=== PATIENT | male | born 1960 | race Caucasian/White ===

== ENCOUNTER 2016-06-20 09:42 | Emergency (ER) | payer BC ==
[2016-06-20] MEDS ORDERED: Aspirin Low Dose CHEW TAB* 81 MG PO ONE (10:50)
[2016-06-20 11:05] LABS: Hematocrit 42 % (42-52); Mean Corpuscular HGB Conc 33 g/dl (31-36); Mean Corpuscular Hemoglobin 31 pg (27-31); Mean Corpuscular Volume 93 fL (80-94); Mean Platelet Volume 9 um3 (7.4-10.4); Red Blood Count 4.52 10^6/ul (4.0-5.4); Red Cell Distribution Width 13 % (10.5-15); White Blood Count 6.5 10^3/ul (3.5-10.8)
[2016-06-20 11:20] LABS: Calcium 9.1 mg/dL (8.6-10.3); EGFR African American 114.8 (>60); EGFR Non-African American 89.3 (>60); Globulin 2.5 g/dL (2-4); Potassium 3.9 mmol/L (3.5-5.0); Total Bilirubin 0.4 mg/dL (0.2-1.0); Total Protein 6.5 g/dL (6.4-8.9)
[2016-06-20 11:21] LABS: Troponin I 0.01 ng/mL (<0.04)
--- NOTE | 2016-06-20 11:50 | RAD ---
INDICATION: Chest pain. COMPARISON: Comparison is made with a prior study from May 06, 2003. TECHNIQUE: A portable view of the chest was obtained. FINDINGS: Cardiac and mediastinal contours appear to be within normal limits. The lungs are clear. No pleural effusion is seen. IMPRESSION: NO EVIDENCE FOR ACUTE DISEASE.
[2016-06-20 13:35] LABS: Urine Bilirubin Negative (Negative); Urine Glucose Negative (Negative); Urine Nitrite Negative (Negative)
--- NOTE | 2016-06-20 13:54 | ED ---
HPI Chest Pain - HPI Summary HPI Summary: Patient presents with two episodes of a dull ache in his right arm, bilateral pectoralis and left upper arm that last 30 seconds. These occurred yesterday and two days ago. The pain is not worse with exertion and it resolves spontaneously. He did feel sweaty yesterday when the pain occurred, but not two days ago. He denies lightheadedness, nausea or back pain. He has a history of "sternal cartilage pain" and over the last two weeks he has increased playing his electric burnett guitar for up to 5 hours a day. His brother does have arrhythmias, but no other family heart history. He does not smoke and exercises daily without pain. He denies sensation of palpations. - History of Current Complaint Chief Complaint: EDChestPainROMI Time Seen by Provider: 06/20/16 10:51 Hx Obtained From: Patient Onset/Duration: Started Days Ago - 2, Atraumatic, Resolved Timing: Intermittent - 30 seconds Initial Severity: Mild Current Severity: Mild Pain Intensity: 1 Chest Pain Location: Left Lateral, Right Lateral - with bilateral upper arms Chest Pain Radiates: No Character: Dull/Aching Aggravating Factor(s): Nothing Alleviating Factor(s): Nothing, Spontaneous Resolution Associated Signs and Symptoms: Positive: Diaphoresis - Allergy/Home Medications Allergies/Adverse Reactions: Allergies Allergy/AdvReac Type Severity Reaction Status Date / Time No Known Allergies Allergy Verified 06/20/16 09:47 PMH/Surg Hx/FS Hx/Imm Hx GI History: Reports: Hx Ulcer - gerd Infectious Disease History: No Infectious Disease History: Reports: Hx Shingles Denies: History Other Infectious Disease, Traveled Outside the in Last 30 Days - Family History Known Family History: Positive: None - Social History Occupation: Employed Full-time Lives: Alone Alcohol Use: Occasionally Substance Use Type: Reports: None Smoking Status (MU): Never Smoked Tobacco Review of Systems Negative: Fever Positive: Chest Pain. Negative: Palpitations Negative: Shortness Of Breath, Cough Negative: Abdominal Pain Negative: Myalgia Negative: Headache, Weakness, Paresthesia, Numbness All Other Systems Reviewed And Are Negative: Yes Physical Exam Triage Information Reviewed: Yes Vital Signs On Initial Exam: Initial Vitals Temp Pulse Resp BP Pulse Ox 97.0 F 56 15 154/86 98 06/20/16 09:47 06/20/16 09:47 06/20/16 09:47 06/20/16 09:47 06/20/16 09:47 Vital Signs Reviewed: Yes Appearance: Positive: Well-Appearing, No Pain Distress, Well-Nourished Skin: Positive: Warm, Skin Color Reflects Adequate Perfusion, Dry, Soft Head/Face: Positive: Normal Head/Face Inspection Eyes: Positive: EOMI, ISAMAR, Conjunctiva Clear ENT: Positive: Hearing grossly normal Neck: Positive: Supple, Nontender, No Lymphadenopathy Respiratory/Lung Sounds: Positive: Clear to Auscultation, Breath Sounds Present Cardiovascular: Positive: Bradycardia Abdomen Description: Positive: Nontender, Soft. Negative: CVA Tenderness (R), CVA Tenderness (L), Distended, Guarding, Pulsatile Mass Bowel Sounds: Positive: Present Musculoskeletal: Positive: Strength/ROM Intact, Pain @ - TTP with palpation of bilateral pectoralis, shoulders and lateral ribs.. Negative: Edema Left, Edema Right Neurological: Positive: Sensory/Motor Intact, Alert, Oriented to Person Place, Time, NV Bundle Intact Distally, Normal Gait Psychiatric: Positive: Affect/Mood Appropriate AVPU Assessment: Alert Diagnostics - Vital Signs Vital Signs Temp Pulse Resp BP Pulse Ox 06/20/16 11:00 51 19 152/90 96 06/20/16 10:30 50 14 142/80 96 06/20/16 10:09 52 97 06/20/16 10:08 141/82 06/20/16 09:47 97.0 F 56 15 154/86 98 - Laboratory Lab Results: Lab Results 06/20/16 06/20/16 06/20/16 Range/Units 11:00 11:00 11:00 WBC 6.5 (3.5-10.8) 10^3/ul RBC 4.52 (4.0-5.4) 10^6/ul Hgb 14.0 (14.0-18.0) g/dl Hct 42 (42-52) % MCV 93 (80-94) fL MCH 31 (27-31) pg MCHC 33 (31-36) g/dl RDW 13 (10.5-15) % Plt Count 191 (150-450) 10^3/ul MPV 9 (7.4-10.4) um3 Neut % (Auto) 61.4 (38-83) % Lymph % (Auto) 29.8 (25-47) % Redwood % (Auto) 6.8 (1-9) % Eos % (Auto) 1.3 (0-6) % Baso % (Auto) 0.7 (0-2) % Absolute Neuts (auto) 4.0 (1.5-7.7) 10^3/ul Absolute Lymphs (auto) 1.9 (1.0-4.8) 10^3/ul Absolute Monos (auto) 0.4 (0-0.8) 10^3/ul Absolute Eos (auto) 0.1 (0-0.6) 10^3/ul Absolute Basos (auto) 0 (0-0.2) 10^3/ul Absolute Nucleated RBC 0 10^3/ul Nucleated RBC % 0.1 Sodium 139 (133-145) mmol/L Potassium 3.9 (3.5-5.0) mmol/L Chloride 106 (101-111) mmol/L Carbon Dioxide 28 (22-32) mmol/L Anion Gap 5 (2-11) mmol/L BUN 15 (6-24) mg/dL Creatinine 0.88 (0.67-1.17) mg/dL Est GFR ( Amer) 114.8 (>60) Est GFR (Non-Af Amer) 89.3 (>60) BUN/Creatinine Ratio 17.0 (8-20) Glucose 96 (70-100) mg/dL Lactic Acid 0.8 (0.5-2.0) mmol/L Calcium 9.1 (8.6-10.3) mg/dL Total Bilirubin 0.40 (0.2-1.0) mg/dL AST 17 (13-39) U/L ALT 17 (7-52) U/L Alkaline Phosphatase 67 (34-104) U/L Troponin I 0.01 (<0.04) ng/mL Total Protein 6.5 (6.4-8.9) g/dL Albumin 4.0 (3.2-5.2) g/dL Globulin 2.5 (2-4) g/dL Albumin/Globulin Ratio 1.6 (1-3) Urine Color Urine Appearance Urine pH (5-9) Ur Specific Midway (1.010-1.030) Urine Protein (Negative) Urine Ketones (Negative) Urine Blood (Negative) Urine Nitrate (Negative) Urine Bilirubin (Negative) Urine Urobilinogen (Negative) Ur Leukocyte Esterase (Negative) Urine Glucose (Negative) 06/20/16 Range/Units 11:55 WBC (3.5-10.8) 10^3/ul RBC (4.0-5.4) 10^6/ul Hgb (14.0-18.0) g/dl Hct (42-52) % MCV (80-94) fL MCH (27-31) pg MCHC (31-36) g/dl RDW (10.5-15) % Plt Count (150-450) 10^3/ul MPV (7.4-10.4) um3 Neut % (Auto) (38-83) % Lymph % (Auto) (25-47) % Redwood % (Auto) (1-9) % Eos % (Auto) (0-6) % Baso % (Auto) (0-2) % Absolute Neuts (auto) (1.5-7.7) 10^3/ul Absolute Lymphs (auto) (1.0-4.8) 10^3/ul Absolute Monos (auto) (0-0.8) 10^3/ul Absolute Eos (auto) (0-0.6) 10^3/ul Absolute Basos (auto) (0-0.2) 10^3/ul Absolute Nucleated RBC 10^3/ul Nucleated RBC % Sodium (133-145) mmol/L Potassium (3.5-5.0) mmol/L Chloride (101-111) mmol/L Carbon Dioxide (22-32) mmol/L Anion Gap (2-11) mmol/L BUN (6-24) mg/dL Creatinine (0.67-1.17) mg/dL Est GFR ( Amer) (>60) Est GFR (Non-Af Amer) (>60) BUN/Creatinine Ratio (8-20) Glucose (70-100) mg/dL Lactic Acid (0.5-2.0) mmol/L Calcium (8.6-10.3) mg/dL Total Bilirubin (0.2-1.0) mg/dL AST (13-39) U/L ALT (7-52) U/L Alkaline Phosphatase (34-104) U/L Troponin I (<0.04) ng/mL Total Protein (6.4-8.9) g/dL Albumin (3.2-5.2) g/dL Globulin (2-4) g/dL Albumin/Globulin Ratio (1-3) Urine Color Yellow Urine Appearance Clear Urine pH 7.0 (5-9) Ur Specific Midway 1.008 L (1.010-1.030) Urine Protein Negative (Negative) Urine Ketones Negative (Negative) Urine Blood Negative (Negative) Urine Nitrate Negative (Negative) Urine Bilirubin Negative (Negative) Urine Urobilinogen Negative (Negative) Ur Leukocyte Esterase Negative (Negative) Urine Glucose Negative (Negative) Troponin at 11:00 - 0.01 Troponin at 12:48 - 0.00 Result Diagrams: 06/20/16 11:00 06/20/16 11:00 Lab Statement: Any lab studies that have been ordered have been reviewed, and results considered in the medical decision making process. - EKG No standard instances Cardiac Rate: Bradycardia EKG Rhythm: Sinus Rhythm ST Segment: Normal Ectopy: None Chest Pain Course/Dx - Chest Pain Differential Diagnosis/HQI/PQRI: Acute PA, ACS, Angina, Aortic Aneurysm, Chest Wall, Lower Respiratory Infection, Pulmonary Edema - Diagnoses Provider Diagnoses: Chest wall pain Discharge - Discharge Plan Condition: Stable Disposition: HOME Patient Education Materials: Chest Wall Pain (ED) Referrals: Etienne Trevizo MD [Primary Care Provider] - Additional Instructions: Please follow-up with your PCP within 48 hours for evaluation and treatment options. Return to the emergency department if your symptoms worsen.
[2016-06-20 14:18] VITALS: BP 150/77
== END 2016-06-20 14:30 | disposition home or self-care (01) ==
LOC: ED 09:42
DX: R07.89 Other chest pain (principal)
CPT/HCPCS: 36415; 71010; 80053; 81003; 83605; 84484; 85025; 93005; 99283

== ENCOUNTER 2016-10-17 11:44 | Day surgery (SDC) | payer BC ==
[~2016-10-17 11:44] MED LIST: Buffered Lidocaine 1% SYR 3ML* 3 ML/SYR SYRINGE INTRADERM ONE; Famotidine IV* 10 MG/ML 2 ML (20 mg) IV ONE; Levalbuterol 0.63MG/3ML NEB INH ONE; Metoclopramide TAB* 10 MG PO ONE
[2016-10-17] MEDS ORDERED: Metoclopramide TAB* 10 MG ONE (12:01)
[2016-10-17] MEDS ORDERED: Famotidine IV* 10 MG/ML 2 ML (20 mg) ONE (12:01)
[2016-10-17] MEDS ORDERED: Levalbuterol 1.25MG/0.5ML NEB ONE (12:01)
[2016-10-17] MEDS ORDERED: Dexamethasone IV* 4 MG/ML 1 ML (4 MG) ONE (12:37)
[2016-10-17] MEDS ORDERED: Ondansetron INJ* 2 MG/ML VIAL ONE (12:37)
[2016-10-17] MEDS ORDERED: Cisatracurium* 2 MG/ML MDV 5 ML ONE (12:37)
[2016-10-17] MEDS ORDERED: Propofol* 10 MG/ML 20 ML BTL IV PUSH ONE (12:37)
[2016-10-17] MEDS ORDERED: Lidocaine 2% PF * 5 ML VIAL ONE (12:37)
[2016-10-17] MEDS ORDERED: fentaNYL* 50 MCG/ML 2 ML VIAL (100 MCG VIAL) ONE (12:37)
[2016-10-17] MEDS ORDERED: Midazolam* 1 MG/ML 5 ML VIAL (5 MG) ONE (12:38)
[2016-10-17] MEDS ORDERED: EPHEDrine (Pressors)* 50 MG/ML VIAL ONE (13:22)
[2016-10-17] MEDS ORDERED: fentaNYL* 50 MCG/ML 2 ML VIAL (100 MCG VIAL) IV PRN (15:02)
[2016-10-17] MEDS ORDERED: Levalbuterol 0.63MG/3ML NEB INH PRN (15:02)
[2016-10-17] MEDS ORDERED: Ondansetron INJ* 2 MG/ML VIAL IV PRN (15:02)
--- NOTE | 2016-10-17 15:40 | RAD ---
Indication: Assess for pneumothorax post RIGHT transbronchial biopsy. Comparison: October 05, 2016 CT. October 04, 2016 chest radiograph. Technique: Upright AP 1500 hours Report: Negative for RIGHT pneumothorax. Grossly clear pleural spaces. Consolidation in the RIGHT mid to lower lung zone is more confluent than on the October 04, 2016 exam. This may represent worsening of alveolar consolidation due to primary inflammatory process or potentially alveolar hemorrhage. Top normal heart size accounting for AP portable technique. Unremarkable central pulmonary vasculature. IMPRESSION: No evidence for RIGHT pneumothorax post transbronchial biopsy.
[2016-10-17 17:00] VITALS: BP 128/75
--- NOTE | 2016-10-18 02:21 | PRO ---
BRONCHOSCOPY REPORT: DATE OF PROCEDURE: 10/17/16 - [facility] SURGEON: Alexia Santiago MD ANESTHESIA: General anesthesia. ANESTHESIOLOGIST: Dr. Vera.Refer to anesthesiologist's note for further details. PREPROCEDURAL DIAGNOSIS: Multiple pulmonary nodules, mediastinal and hilar adenopathy, air bronchograms in right middle lobe, left lower lobe and right upper lobe; evaluation of sarcoidosis, rule out malignancy. PROCEDURE PERFORMED: Bronchoscopy with endobronchial ultrasound-guided fine needle aspiration from R4, L4, station 7, R10 nodes, transbronchial biopsies from right middle lobe, bronchial alveolar lavage from right middle lobe and right lower lobe and endobronchial brushings from right middle lobe. DESCRIPTION OF PROCEDURE: Informed consent was obtained from the patient prior to the procedure after all the risks and benefits were thoroughly explained. The patient recently was treated for pneumonia with progression in lung infiltrates on followup CT scan. The patient was scheduled for bronchoscopy for evaluation of CT chest abnormality. The patient was placed supine on the operating room table. Appropriate time-out was agreed on by attending staff. A flexible Olympus bronchoscope was utilized for airway inspection. No endobronchial lesions were noted. All airways appeared to be patent. Right upper lobe bronchus had 4 sub- segments. No thick secretions were noted. EBUS bronchoscope was then withdrawn and Olympus EBUS bronchoscope was inserted through ET tube. R4 lymph nodes was accessed with 3 passes. Rapid on-site evaluation revealed lymphatic tissue, no malignant cells. Bronchoscope was then advanced into left bronchus and station L4 was accessed with 3 passes. Lymphatic tissue was seen, no endobronchial lesions were noted. Bronchoscope was then advanced and station 7 lymph nodes was accessed with 2 passes. Lymphatic tissue was noted, no inflammation or malignant cells were noted. Station R10 was sampled with 2 passes. Rapid on-site evaluation revealed lymphatic tissue, no malignant cells were noted. Olympus EBUS bronchoscope was then withdrawn and Olympus flexible bronchoscope was reinserted and transbronchial biopsies were obtained from right middle lobe with 5 passes under fluoro guidance. Specimen was placed in formalin, bronchial brushings were also obtained from right middle lobe and 4 slides were smeared. Bronchoalveolar lavage was also obtained from right middle lobe and right lower lobe and was sent for exam. The patient tolerated the procedure well. The patient was extubated and seen in Recovery in optimal condition. A postprocedure chest x-ray was ordered and is pending at this time. [id number]/[facility] #: [id number] LAURA
--- NOTE | 2016-10-18 10:27 | RAD ---
CPT II Codes: 6045F INDICATION: Right middle lobe bronchoscopy Fluoroscopic services provided for referring physician. 75.4 seconds of fluoroscopy time was used. A bronchoscopy is noted in the right middle lobe. IMPRESSION: Fluoroscopic services provided for referring physician for bronchoscopy of the right middle lobe.
== END 2016-10-17 16:15 | disposition home or self-care (01) ==
LOC: OR 11:44
PROVIDERS: ATTEND Internal Medicine
DX: R59.0 Localized enlarged lymph nodes (principal); R91.8 Other nonspecific abnormal finding of lung field; R06.02 Shortness of breath; J45.909 Unspecified asthma, uncomplicated; I10 Essential (primary) hypertension; I65.02 Occlusion and stenosis of left vertebral artery
CPT/HCPCS: 71010; 76000; 87070; 87102; 87116; 87205; 87206; 88108; 88112; 88172; 88173; 88305; A9270-GY; J1100; J2250; J2405; J2704; J3010

== ENCOUNTER 2016-10-20 04:22 | Emergency (ER) | payer BC ==
[2016-10-20] MEDS ORDERED: Aspirin Low Dose CHEW TAB* 81 MG PO ONE (05:29)
[2016-10-20] MEDS ORDERED: NS 0.9% 1000 ML* 1,000 ML IV ONE (05:30)
[2016-10-20 06:34] VITALS: BP 153/89
--- NOTE | 2016-10-20 20:36 | ED ---
Rafita Coulter Alok, scribed for Christiano Peter MD on 10/20/16 at 0615 . Dizziness - HPI Summary HPI Summary: 56M presents to the ED for lightheadedness, ear ache, and indigestion. Pt states he took 6 teaspoons of baking soda at 0300 for his GERD and is worried he took too much. Pt states he has been taking baking soda for his GERD for years and it usually helps, though not in such high quantity and his GERD was not relieved this evening. Pt also notes esophageal burning from GERD for the past week. Pt denies CP or tightness/pressure. Pt denies sour taste in his mouth. Pt states that he has not had GERD for the past 4 or 5 years since he stopped drinking beer, though since recently eating a poor diet his GERD has returned. Pt medications include doxycycline and aspirin. Pt was dx with PNA 2.5 month ago. Pt additionally had a lung biopsy 3 days ago. - History Of Current Complaint Chief Complaint: EDGeneral Stated Complaint: OVERDOSE ON BAKING SODA Time Seen by Provider: 10/20/16 05:08 Hx Obtained From: Patient Timing: Constant Severity Initially: Moderate Severity Currently: Moderate Character: Lightheaded Aggravating Factor(s): Other - possible reaction to baking soda - Allergies/Home Medications Allergies/Adverse Reactions: Allergies Allergy/AdvReac Type Severity Reaction Status Date / Time Gadoteridol [From ProHance] Allergy See Comment Verified 10/20/16 04:36 PMH/Surg Hx/FS Hx/Imm Hx Endocrine/Hematology History: Denies: Hx Diabetes Cardiovascular History: Reports: Hx Hypertension - NO MEDICATION FOR AT THIS TIME PER PATIENT, Hx Peripheral Vascular Disease - OCCULSION IN THE LEFT VERTEBRAL ARTERY Denies: Hx Pacemaker/ICD Respiratory History: Reports: Hx Asthma - ?-PRN INHALER, Other Respiratory Problems/Disorders - FLUID IN LUNG Denies: Hx Pulmonary Embolism GI History: Reports: Hx Gastroesophageal Reflux Disease - NO MEDICATION FOR AT THIS TIME, Hx Hiatal Hernia, Hx Ulcer - gerd History: Denies: Hx Dialysis, Hx Renal Disease Musculoskeletal History: Reports: Hx Arthritis - FINGER, BILATERAL GREAT TOE, Hx Bursitis - HX OF IN SHOULDER-15 YEARS AGO, Hx Tendonitis - HX OF TENNIS ELBOW , LEFT HAND TRIGGER FINGERS, RIGHT HAND MIDDLE FINGER, Other Musculoskeletal History - CERVICAL SPONDYLOSIS Sensory History: Reports: Hx Contacts or Glasses - READING Denies: Hx Hearing Aid Opthamlomology History: Reports: Hx Contacts or Glasses - READING Neurological History: Reports: Hx Migraine - LAST ABOUT 6 MONTHS AGO, Other Neuro Impairments/Disorders - EXTREME VERTIGO-06/2016-08/2016-NONE SINCE Psychiatric History: Reports: Hx Depression - ON MEDICATION FOR Denies: Hx Panic Disorder - Surgical History Surgery Procedure, Year, and Place: Rt WRIST - GANGLION CYST Hx Anesthesia Reactions: No Infectious Disease History: Reports: Hx Shingles Denies: History Other Infectious Disease, Traveled Outside the [place] in Last 30 Days - Family History Known Family History: Negative: Cardiac Disease, Hypertension, Diabetes - Social History Lives: With Family Alcohol Use: Weekly Alcohol Amount: 1 PER WEEK Substance Use Type: Reports: None Smoking Status (MU): Former Smoker Amount Used/How Often: 1 PPD X 13 YRS Have You Smoked in the Last Year: No Review of Systems Negative: Fever, Chills Negative: Erythema Positive: Ear Ache, Other - esophageal burning . Negative: Sore Throat Negative: Chest Pain Negative: Shortness Of Breath, Cough Positive: Other - indigestion. Negative: Abdominal Pain, Vomiting, Nausea Negative: dysuria, hematuria Negative: Myalgia, Edema Negative: Rash Neurological: Other - lightheadedness All Other Systems Reviewed And Are Negative: Yes Physical Exam - Summary Physical Exam Summary: Constitutional: Well-developed, Well-nourished, Alert. (-) Distressed Skin: Warm, Dry HENT: Normocephalic; Atraumatic Eyes: Conjunctiva normal Neck: Musculoskeletal ROM normal neck. (-) JVD, (-) Stridor, (-) Tracheal deviation Cardio: Rhythm regular, rate normal, Heart sounds normal; Intact distal pulses; The pedal pulses are 2+ and symmetric. Radial pulses are 2+ and symmetric. (-) Murmur Pulmonary/Chest wall: Effort normal. (-) Respiratory distress, (-) Wheezes, (-) Rales Abd: Soft, (-) Tenderness, (-) Distension, (-) Guarding, (-) Rebound Musculoskeletal: (-) Edema Lymph: (-) Cervical adenopathy Neuro: Alert, Oriented x3 Psych: Mood and affect Normal Triage Information Reviewed: Yes Vital Signs On Initial Exam: Initial Vitals Temp Pulse Resp BP Pulse Ox 97.5 F 67 16 163/93 98 10/20/16 04:25 10/20/16 04:25 10/20/16 04:25 10/20/16 04:25 10/20/16 04:25 Vital Signs Reviewed: Yes Diagnostics - Vital Signs Vital Signs Temp Pulse Resp BP Pulse Ox 10/20/16 04:25 97.5 F 67 16 163/93 98 - Laboratory Lab Statement: Any lab studies that have been ordered have been reviewed, and results considered in the medical decision making process. Re-Evaluation - Re-Evaluation First Eval Re-Evaluation Time: 06:17 Comment: Pt understands that I wish to do a cardiac work-up on him but does not wish to do it and will leave AMA Dizzy Course/Dx - Course Course Of Treatment: Pt understands that I wish to do a cardiac work-up on him but does not wish to do it and will leave AMA - Diagnoses Provider Diagnoses: Chest pain, unspecified Discharge - Discharge Plan Condition: Stable Disposition: AGAINST MEDICAL ADVICE Referrals: Naomi Parks MD [Primary Care Provider] - The documentation as recorded by the Rafita golden Alok accurately reflects the service I personally performed and the decisions made by me, Christiano Peter MD.
== END 2016-10-20 06:44 | disposition left against medical advice (07) ==
LOC: ED 04:22
DX: H92.09 Otalgia, unspecified ear (principal); R42 Dizziness and giddiness; Z53.21 Procedure and treatment not carried out due to patient leaving prior to being seen by health care provider; R07.9 Chest pain, unspecified
CPT/HCPCS: 99282

== ENCOUNTER 2016-10-21 00:32 | Emergency (ER) | payer BC ==
[2016-10-21] MEDS ORDERED: diPHENhydraMINE IV* 50 MG/ML 1 ml VIAL (BENADRYL) IV ONE (01:11)
--- NOTE | 2016-10-21 01:52 | ED ---
Allergic Reaction/Systemic - HPI Summary HPI Summary: Patient developed hives and itching on his bilateral forearms and hands approximately an hour ago while asleep. His throat "feels a little scratchy" but he denies difficulty breathing, SOB, nausea, orlightheadedness. He was asleep with an acrylic blanket, which he thinks could have caused the reaction. Otherwise he did eat beef at a new [employer] restaurant tonight 6 hours ago and he took omeprazole this morning for the first time in 3 years tonight for GERD. He denies new soaps, clothes, lotions, detergents or substances. He is currently on doxycycline for URI. He feels that his symptoms have already begun to improve. - History of Current Complaint Chief Complaint: EDAllergicReaction Time Seen by Provider: 10/21/16 00:44 Hx Obtained From: Patient, Family/Resolute Professional Onset/Duration: Sudden Onset Timing: Constant Severity Initially: Moderate Severity Currently: Mild Pain Intensity: 0 Character: Pruritus, Hives Aggravating Factor(s): Nothing Alleviating Factor(s): Nothing Associated Signs And Symptoms: Positive: Negative - Related Hx Possible Reaction To: Unknown - Allergies/Home Medications Allergies/Adverse Reactions: Allergies Allergy/AdvReac Type Severity Reaction Status Date / Time Gadoteridol [From Wishdates] Allergy See Comment Verified 10/20/16 04:36 PMH/Surg Hx/FS Hx/Imm Hx Endocrine/Hematology History: Denies: Hx Diabetes Cardiovascular History: Reports: Hx Hypertension - NO MEDICATION FOR AT THIS TIME PER PATIENT, Hx Peripheral Vascular Disease - OCCULSION IN THE LEFT VERTEBRAL ARTERY Denies: Hx Pacemaker/ICD Respiratory History: Reports: Hx Asthma - ?-PRN INHALER, Other Respiratory Problems/Disorders - FLUID IN LUNG Denies: Hx Pulmonary Embolism GI History: Reports: Hx Gastroesophageal Reflux Disease - NO MEDICATION FOR AT THIS TIME, Hx Hiatal Hernia, Hx Ulcer - gerd History: Denies: Hx Dialysis, Hx Renal Disease Musculoskeletal History: Reports: Hx Arthritis - FINGER, BILATERAL GREAT TOE, Hx Bursitis - HX OF IN SHOULDER-15 YEARS AGO, Hx Tendonitis - HX OF TENNIS ELBOW , LEFT HAND TRIGGER FINGERS, RIGHT HAND MIDDLE FINGER, Other Musculoskeletal History - CERVICAL SPONDYLOSIS Sensory History: Reports: Hx Contacts or Glasses - READING Denies: Hx Hearing Aid Opthamlomology History: Reports: Hx Contacts or Glasses - READING Neurological History: Reports: Hx Migraine - LAST ABOUT 6 MONTHS AGO, Other Neuro Impairments/Disorders - EXTREME VERTIGO-06/2016-08/2016-NONE SINCE Psychiatric History: Reports: Hx Depression - ON MEDICATION FOR Denies: Hx Panic Disorder - Surgical History Surgery Procedure, Year, and Place: Rt WRIST - GANGLION CYST Hx Anesthesia Reactions: No Infectious Disease History: No Infectious Disease History: Reports: Hx Shingles Denies: History Other Infectious Disease, Traveled Outside the [place] in Last 30 Days - Family History Known Family History: Positive: None Negative: Cardiac Disease, Hypertension, Diabetes - Social History Occupation: Employed Full-time Lives: With Family Alcohol Use: Weekly Alcohol Amount: 1 PER WEEK Substance Use Type: Reports: None Smoking Status (MU): Former Smoker Amount Used/How Often: 1 PPD X 13 YRS Have You Smoked in the Last Year: No Review of Systems Negative: Chest Pain Negative: Shortness Of Breath Negative: Nausea Positive: Other - rash bilateral forearms and hands Negative: Paresthesia, Numbness All Other Systems Reviewed And Are Negative: Yes Physical Exam Triage Information Reviewed: Yes Vital Signs On Initial Exam: Initial Vitals Temp Pulse Resp BP Pulse Ox 98.3 F 76 18 149/87 98 10/21/16 00:34 10/21/16 00:34 10/21/16 00:34 10/21/16 00:34 10/21/16 00:34 Vital Signs Reviewed: Yes Appearance: Positive: Well-Appearing, No Pain Distress, Well-Nourished Skin: Positive: Warm, Skin Color Reflects Adequate Perfusion, Dry, Soft, Erythema @ - diffuse mild urticarial rash on the volar aspects of bilateral forearm and minimal erythema on the palms of bilateral hands Head/Face: Positive: Normal Head/Face Inspection Eyes: Positive: EOMI, ISAMAR, Conjunctiva Clear ENT: Positive: Hearing grossly normal, Pharynx normal Neck: Positive: Supple, Nontender, No Lymphadenopathy Respiratory/Lung Sounds: Positive: Clear to Auscultation, Breath Sounds Present Cardiovascular: Positive: RRR Musculoskeletal: Positive: Strength/ROM Intact Neurological: Positive: Sensory/Motor Intact, Alert, Oriented to Person Place, Time, NV Bundle Intact Distally, Normal Gait Psychiatric: Positive: Affect/Mood Appropriate AVPU Assessment: Alert - [place] Coma Scale Coma Scale Total: 15 Diagnostics - Vital Signs Vital Signs Temp Pulse Resp BP Pulse Ox 10/21/16 01:00 98.3 F 76 18 149/82 98 10/21/16 00:34 98.3 F 76 18 149/87 98 - Laboratory Lab Statement: Any lab studies that have been ordered have been reviewed, and results considered in the medical decision making process. Re-Evaluation - Re-Evaluation First Eval Re-Evaluation Time: 02:00 Change: Improved - rash is almost completely cleared for right forearm and hand , and has decreased on the left as well. Allergic Reaction Course/Dx - Diagnoses Differential Diagnosis/HQI/PQRI: Positive: Airway Obstruction, Anaphylaxis, Angioedema, Local Allergic Reaction, Urticaria Provider Diagnoses: Allergic reaction Discharge - Discharge Plan Condition: Stable Disposition: HOME Patient Education Materials: General Allergic Reaction (ED) Referrals: Naomi Parks MD [Primary Care Provider] - Additional Instructions: Please continue to use Benadryl 50mg every 4 hours to decrease symptoms for the next 24 hours. Follow-up with your primary care provider if symptoms persist or are reoccurring. Return to the emergency department or call 911 if symptoms worsen.
[2016-10-21] MEDS ORDERED: diPHENhydraMINE PO* 50 MG PO ONE (02:00)
[2016-10-21 02:15] VITALS: BP 134/79
== END 2016-10-21 02:14 | disposition home or self-care (01) ==
LOC: ED 00:32
DX: T78.40XA Allergy, unspecified, initial encounter (principal); X58.XXXA Exposure to other specified factors, initial encounter; J06.9 Acute upper respiratory infection, unspecified; F32.9 Major depressive disorder, single episode, unspecified; K21.9 Gastro-esophageal reflux disease without esophagitis
CPT/HCPCS: 96374; 99282; A9270-GY; J1200

== ENCOUNTER → 2016-12-29 18:58 | Emergency (ER) | payer BC ==
[~2016-12-29 18:58] MED LIST changes: +Aspirin TAB* 325 MG PO ONE; -Buffered Lidocaine 1% SYR 3ML* 3 ML/SYR SYRINGE INTRADERM ONE; -Famotidine IV* 10 MG/ML 2 ML (20 mg) IV ONE; +Famotidine IV* 10 MG/ML 2 ML (20 mg) IV SLOW PU ONE; -Levalbuterol 0.63MG/3ML NEB INH ONE; -Metoclopramide TAB* 10 MG PO ONE; +diPHENhydraMINE IV* 50 MG/ML 1 ml VIAL (BENADRYL) IV ONE
--- NOTE | 2016-12-29 20:54 | ED ---
Allergic Reaction/Systemic - History of Current Complaint Chief Complaint: EDAllergicReaction Time Seen by Provider: 12/29/16 19:29 Pain Intensity: 0 - Allergies/Home Medications Allergies/Adverse Reactions: Allergies Allergy/AdvReac Type Severity Reaction Status Date / Time Gadoteridol [From ProHance] Allergy See Comment Verified 10/20/16 04:36 PMH/Surg Hx/FS Hx/Imm Hx Endocrine/Hematology History: Denies: Hx Diabetes Cardiovascular History: Reports: Hx Hypertension - NO MEDICATION FOR AT THIS TIME PER PATIENT, Hx Peripheral Vascular Disease - OCCULSION IN THE LEFT VERTEBRAL ARTERY Denies: Hx Pacemaker/ICD Respiratory History: Reports: Hx Asthma - ?-PRN INHALER, Other Respiratory Problems/Disorders - FLUID IN LUNG Denies: Hx Pulmonary Embolism GI History: Reports: Hx Gastroesophageal Reflux Disease - NO MEDICATION FOR AT THIS TIME, Hx Hiatal Hernia, Hx Ulcer - gerd History: Denies: Hx Dialysis, Hx Renal Disease Musculoskeletal History: Reports: Hx Arthritis - FINGER, BILATERAL GREAT TOE, Hx Bursitis - HX OF IN SHOULDER-15 YEARS AGO, Hx Tendonitis - HX OF TENNIS ELBOW , LEFT HAND TRIGGER FINGERS, RIGHT HAND MIDDLE FINGER, Other Musculoskeletal History - CERVICAL SPONDYLOSIS Sensory History: Reports: Hx Contacts or Glasses - READING Denies: Hx Hearing Aid Opthamlomology History: Reports: Hx Contacts or Glasses - READING Neurological History: Reports: Hx Migraine - LAST ABOUT 6 MONTHS AGO, Other Neuro Impairments/Disorders - EXTREME VERTIGO-06/2016-08/2016-NONE SINCE Psychiatric History: Reports: Hx Depression - ON MEDICATION FOR Denies: Hx Panic Disorder - Surgical History Surgery Procedure, Year, and Place: Rt WRIST - [facility] Hx Anesthesia Reactions: No Infectious Disease History: No Infectious Disease History: Reports: Hx Shingles Denies: History Other Infectious Disease, Traveled Outside the [place] in Last 30 Days - Family History Known Family History: Positive: None Negative: Cardiac Disease, Hypertension, Diabetes - Social History Alcohol Use: Weekly Alcohol Amount: 1 PER WEEK Substance Use Type: Reports: None Smoking Status (MU): Former Smoker Amount Used/How Often: 1 PPD X 13 YRS Have You Smoked in the Last Year: No Physical Exam Vital Signs On Initial Exam: Initial Vitals BP 113/67 12/29/16 19:03 - [place] Coma Scale Coma Scale Total: 15 Diagnostics - Vital Signs Vital Signs Temp Pulse Resp BP Pulse Ox 12/29/16 20:30 84 17 127/75 99 12/29/16 20:00 66 23 113/59 99 12/29/16 19:30 72 23 120/70 98 12/29/16 19:05 97.8 F 53 16 113/67 93 12/29/16 19:03 113/67 - Laboratory Lab Statement: Any lab studies that have been ordered have been reviewed, and results considered in the medical decision making process. Allergic Reaction Course/Dx - Diagnoses Provider Diagnoses: Allergic reaction Discharge - Discharge Plan Condition: Stable Disposition: HOME Patient Education Materials: General Allergic Reaction (ED) Additional Instructions: Take medications as directed for the next 5 days. 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 Do not eat beef, stay away from potential allergens. If symptoms return or worsen please seek medical attention promptly.
[2016-12-29 21:33] VITALS: BP 128/75
== END | disposition home or self-care (01) ==
LOC: ED 18:58
DX: T78.40XA Allergy, unspecified, initial encounter (principal); X58.XXXA Exposure to other specified factors, initial encounter; I10 Essential (primary) hypertension; Z87.891 Personal history of nicotine dependence; I73.9 Peripheral vascular disease, unspecified; F32.9 Major depressive disorder, single episode, unspecified
CPT/HCPCS: 96374; 96375; 99283; J1200

== ENCOUNTER 2017-07-01 06:53 | Day surgery (SDC) | payer BC ==
[~2017-07-01 06:53] MED LIST changes: -Aspirin TAB* 325 MG PO ONE; +Buffered Lidocaine 0.9% SYRIN* 5 ML/SYR SYRINGE INTRADERM ONE; -Famotidine IV* 10 MG/ML 2 ML (20 mg) IV SLOW PU ONE; -diPHENhydraMINE IV* 50 MG/ML 1 ml VIAL (BENADRYL) IV ONE
[2017-07-01] MEDS ORDERED: Buffered Lidocaine 0.9% SYRIN* 5 ML/SYR SYRINGE ONE (07:02)
[2017-07-01] MEDS ORDERED: Bupivacaine 0.25% SDV* 30 ML ONE (07:16)
[2017-07-01] MEDS ORDERED: fentaNYL* 50 MCG/ML 2 ML VIAL (100 MCG VIAL) ONE (08:00)
[2017-07-01] MEDS ORDERED: Midazolam* 1 MG/ML 2 ML VIAL (2 MG) ONE (08:01)
[2017-07-01] MEDS ORDERED: Propofol* 10 MG/ML 20 ML BTL IV PUSH ONE (08:22)
[2017-07-01] MEDS ORDERED: Ondansetron INJ* 2 MG/ML VIAL IV PRN (08:40)
[2017-07-01] MEDS ORDERED: Naloxone* 0.4 MG/ML 1 ML VIAL IV PRN (08:40)
[2017-07-01 09:35] VITALS: BP 126/73
--- NOTE | 2017-07-02 15:24 | OP ---
DATE OF OPERATION: 07/01/17 - [facility] DATE OF : 56 SURGEON: Merrill Ortega MD. [place] OPERATOR: BRENNA Siegel. ANESTHESIOLOGIST: Dr. Darnell. ANESTHESIA: Local MAC. PRE-OPERATIVE DIAGNOSIS: Left middle and ring trigger fingers. POST-OPERATIVE DIAGNOSIS: Left middle and ring trigger fingers. OPERATIVE PROCEDURE: Left middle and ring trigger finger releases. INDICATIONS: Leo had the trigger fingers come back despite injection. We have talked about risks and benefits. He wants to proceed. ESTIMATED BLOOD LOSS: 2 mL. COMPLICATIONS: None. FINDINGS: As expected. DESCRIPTION OF PROCEDURE: Leo was seen in the preoperative holding area. The correct side, site and procedures were identified. We came back to the operating room. The arm was prepped and draped in the usual fashion. I infiltrated the area with 0.25% plain Marcaine. Time out was performed. A 1- cm longitudinal incision was made over the A1 yoav of the left middle finger. Dissection was carried down bluntly. Soft tissue was released off the tendon sheath. Retractors were placed. The A1 yoav was released longitudinally. The release was completed distally and proximally with the tenotomy scissors. I then made a 1 cm incision over the A1 yoav of the left ring finger. In similar fashion the soft tissue was freed up off the A1 yoav, retractors were placed. The A1 yoav was incised longitudinally with a 15-blade and released distally and proximally little bit further with the tenotomy scissors. There were quite a bit of adhesions between the FDS and the FDP tendons. The adhesions were broken up. All tenosynovitis was debrided. There was no more clicking or catching. I therefore irrigated out both wounds. Both wounds were closed with 4-0 nylon suture. Wounds were dressed with Xeroform, 4x4s, sterile Webril and an Luis wrap. Tourniquet was deflated. He was taken to recovery room in stable condition. [id number]/[facility] #: [id number] MTDD
== END 2017-07-01 10:10 | disposition home or self-care (01) ==
LOC: OR 06:53
PROVIDERS: ATTEND Orthopaedic Surgery Hand Surgery
DX: M65.322 Trigger finger, left index finger (principal); M65.342 Trigger finger, left ring finger; Z86.73 Personal history of transient ischemic attack (TIA), and cerebral infarction without residual deficits; Z87.891 Personal history of nicotine dependence; M10.9 Gout, unspecified; I10 Essential (primary) hypertension; J45.909 Unspecified asthma, uncomplicated
CPT/HCPCS: J2250; J2704; J3010

== ENCOUNTER 2018-08-21 06:26 | Day surgery (SDC) | payer BC ==
[~2018-08-21 06:26] MED LIST changes: -Buffered Lidocaine 0.9% SYRIN* 5 ML/SYR SYRINGE INTRADERM ONE; +Buffered Lidocaine 1% SYRIN* 1 ML/SYRINGE INTRADERM ONE; +Lactated Ringers 1000 ML Bag* 1,000 ML IV SCH
[2018-08-21] MEDS ORDERED: Midazolam* 1 MG/ML 2 ML VIAL (2 MG) ONE (07:10)
[2018-08-21] MEDS ORDERED: fentaNYL* 50 MCG/ML 2 ML VIAL (100 MCG VIAL) ONE (07:10)
[2018-08-21] MEDS ORDERED: Propofol* 10 MG/ML 20 ML BTL ONE (07:10)
[2018-08-21] MEDS ORDERED: Lidocaine 2% PF * 5 ML VIAL ONE (07:10)
[2018-08-21] MEDS ORDERED: Bupivacaine 0.25% SDV* 30 ML ONE (07:22)
[2018-08-21] MEDS ORDERED: Naloxone* 0.4 MG/ML 1 ML VIAL IV PRN (07:28)
[2018-08-21 08:36] VITALS: BP 127/74
--- NOTE | 2018-08-21 09:21 | OP ---
DATE OF OPERATION: 08/21/18 [facility] DATE OF : 56 SURGEON: Merrill Ortega MD. SLEEP TECH: BRENNA Siegel. ANESTHESIOLOGIST: Dr. Villa. ANESTHESIA: Local MAC. PRE-OP DIAGNOSIS: Right ring trigger finger. POST-OP DIAGNOSIS: Right ring trigger finger. OPERATIVE PROCEDURE: Right ring trigger finger release. INDICATIONS: Ab has the aforementioned trigger finger. He has done well with releases on the left. ESTIMATED BLOOD LOSS: 2 mL. COMPLICATIONS: None. FINDINGS: See above and below. DESCRIPTION OF PROCEDURE: Ab was seen in the preoperative holding area. The correct site, side, and procedure were identified. We came back to the operating room. The arm was prepped and draped in the usual fashion and time- out was performed. The arm was exsanguinated with the Esmarch and the tourniquet was inflated to 250 mmHg. I had already numbed out the area with 0.25% plain Marcaine. I then made a 1-cm incision longitudinally over the ring finger A1 yoav. Dissection was carried down and full-thickness flaps were raised off the tendon sheath. I then released the A1 yoav along the radial third longitudinally. This was completed in its entirety and the release was completed proximally and distally with tenotomy scissors. I then had Ab flex the finger multiple times. There was no triggering. I therefore irrigated out the wounds. Skin was closed with 4-0 nylon suture. Dressings were applied, and he was taken to the recovery room in stable condition. [id number]/[facility] #: [id number] MTDD
== END 2018-08-21 06:37 | disposition home or self-care (01) ==
LOC: OREAST 06:26
PROVIDERS: ATTEND Orthopaedic Surgery Hand Surgery
DX: M65.341 Trigger finger, right ring finger (principal); J45.909 Unspecified asthma, uncomplicated; Z87.891 Personal history of nicotine dependence; K21.9 Gastro-esophageal reflux disease without esophagitis; Z86.73 Personal history of transient ischemic attack (TIA), and cerebral infarction without residual deficits; Z79.82 Long term (current) use of aspirin
CPT/HCPCS: J2250; J2704; J3010

== ENCOUNTER 2024-02-24 18:22 | Observation (INO) ==
[2024-02-24 18:52] LABS: ABS Eosinophils 0.1 10^3/uL (0.0-0.5); ABS Monocytes 0.5 10^3/uL (0.0-1.1); ABS Neutrophils 3.4 10^3/uL (1.5-7.6); Eosinophil % 1.3 %; Hematocrit 42.8 % (38-53); Hemoglobin 14.9 g/dL (13.2-16.3); Lymphocyte % 33.6 %; Mean Corpuscular Hemoglobin 32.6 pg (27-33); Mean Corpuscular Hgb Conc 34.8 g/dL (31-36); Mean Corpuscular Volume 93.7 fL (80-97); Mean Platelet Volume 8.1 fL (7.5-11.2); Platelet Count 245 10^3/uL (150-450); Red Blood Count 4.57 10^6/uL (4.06-5.63); Red Cell Distribution Width 12.8 % (12-17); White Blood Count 6.1 10^3/uL (3.6-10.2)
[2024-02-24] MEDS: Iodixanol (CONTRAST) 320 MG/ML 100 ML SDV IV ONE (19:00)
[2024-02-24 19:06] LABS: INR 0.97 (0.85-1.14)
[2024-02-24 20:00] LABS: Urine Appearance Clear; Urine Bilirubin Negative (Negative); Urine Blood Negative (Negative); Urine Color Light-Yellow; Urine Glucose Negative (Negative); Urine Ketones Negative (Negative); Urine Nitrite Negative (Negative); Urine Protein Negative (Negative); Urine Specific Gravity 1.034 (1.002-1.030); Urine Urobilinogen Negative (Negative); Urine pH 7.5 (5.0-8.0)
[2024-02-24 20:11] LABS: ALT 20 U/L (7-52); Albumin 4.6 g/dL (3.2-5.2); Albumin/Globulin Ratio 1.7 (1-3); Alkaline Phosphatase 83 U/L (35-149); Anion Gap 5 mmol/L (2-16); Blood Urea Nitrogen 28 mg/dL (6-24); CO2 Carbon Dioxide 31 mmol/L (22-32); Calcium 9.8 mg/dL (8.6-10.3); Chloride 104 mmol/L (101-111); Cholesterol 228 mg/dL; Creatinine, Serum 1.18 mg/dL (0.67-1.17); Globulin 2.7 g/dL (2-4); Glucose 94 mg/dL (70-100); HDL Cholesterol 42.4 mg/dL; LDL Cholesterol 152 mg/dL; Sodium 140 mmol/L (135-145); Total Bilirubin 0.5 mg/dL (0.2-1.0); Total Protein 7.3 g/dL (6.4-8.9); Triglycerides 170 mg/dL; eGFR CKD-EPI 68.5 (>60)
[2024-02-24] MEDS ORDERED: Sulfur Hexaflouride MICROSPHR 25 MG VIAL IV PRN (22:39)
[2024-02-25] MEDS: Enoxaparin 40 MG/0.4 ML SYR SUBCUT SCH (00:34)
[2024-02-25 15:25] LABS: Calcium 8.8 mg/dL (8.6-10.3); Creatinine, Serum 0.93 mg/dL (0.67-1.17); Potassium 4.5 mmol/L (3.5-5.0); eGFR CKD-EPI 91.1 (>60)
[2024-02-25 18:19] VITALS: BP 161/91
== END 2024-02-25 18:48 | disposition home or self-care (01) ==
LOC: ED 18:22 → EDHOLD 18:22 → MED 02-25 12:02 → EDHOLD 02-25 12:42
PROVIDERS: ADMIT Internal Medicine; ATTEND Internal Medicine